=== PATIENT | male | born 1930 | race Two or more races ===

== ENCOUNTER → 2016-09-24 | Outpatient (CLI) | payer MEDICARE, OTHER ==
[~2016-09-24] MED LIST: ALBU8.5H IH; BUME1TAB30 PO; CARV12 PO; CLOP75 PO; DIGO250T73 PO; DOCU250C91 PO; DUTA1CPM PO; FURO40 PO; INSLAN SQ; INSU3INS5 SQ; LACT30L PO; LISI-660 PO; METO-296 PO; NIAC-8 PO; OMEP20 PO; POTA8TAB4 PO; PRED20 PO; SITA100 PO; SPIR25 PO; TAMS0.4C32 PO; TIOT185 IH; TRAM50TA4 PO
== END | disposition home or self-care (01) ==
LOC: RESP 09:39
PROVIDERS: ATTEND Internal Medicine Critical Care Medicine
DX: J44.9 Chronic obstructive pulmonary disease, unspecified (principal)
CPT/HCPCS: 94060

== ENCOUNTER → 2017-03-22 | Outpatient (CLI) | payer MEDICARE, OTHER ==
[~2017-03-22] MED LIST changes: -ALBU8.5H IH; +ALBU8.5H8 IH; +BUME1TAB17 PO; -BUME1TAB30 PO; -DUTA1CPM PO; -FURO40 PO; -INSU3INS5 SQ; -LISI-660 PO; -METO-296 PO; -NIAC-8 PO; +PRAV40TA4 PO; -PRED20 PO; +SACU1TAB PO; -SITA100 PO; -SPIR25 PO
== END | disposition home or self-care (01) ==
LOC: RADMN 10:02
PROVIDERS: ATTEND Internal Medicine Critical Care Medicine
DX: J98.4 Other disorders of lung (principal); J90 Pleural effusion, not elsewhere classified; I51.7 Cardiomegaly; I70.0 Atherosclerosis of aorta; I25.10 Atherosclerotic heart disease of native coronary artery without angina pectoris; M46.00 Spinal enthesopathy, site unspecified; K57.30 Diverticulosis of large intestine without perforation or abscess without bleeding; K57.10 Diverticulosis of small intestine without perforation or abscess without bleeding; Z95.1 Presence of aortocoronary bypass graft; Z95.0 Presence of cardiac pacemaker
CPT/HCPCS: 71250

== ENCOUNTER → 2017-04-09 | Outpatient (CLI) | payer MEDICARE, OTHER | END | disposition home or self-care (01) | LOC: RADPV 10:31 | PROVIDERS: ATTEND Family Medicine | DX: M25.511 Pain in right shoulder (principal) ==

== ENCOUNTER 2017-07-10 15:12 | Inpatient (IN) | payer MEDICARE, OTHER ==
[~2017-07-10] VITALS: Ht 165.1 cm; Wt 77.9 kg
[2017-07-10] MEDS ORDERED: SITA100 PO (15:33)
[2017-07-10] MEDS ORDERED: FINA5TAB41 PO (15:33)
[2017-07-10] MEDS ORDERED: FURO40I PO (15:33)
[2017-07-10] MEDS ORDERED: SPIR25 PO (15:33)
[2017-07-10] MEDS ORDERED: GABA-529 PO (15:33)
[2017-07-10 17:28] LABS: BASOPHILS % (AUTO) 0.4 % (0.0-2.0); EOSINOPHILS % (AUTO) 2.7 % (1.0-6.0); HEMATOCRIT 34.8 % (41-53); LYMPHOCYTES # (AUTO) 2.6 K/uL (1.0-4.8); LYMPHOCYTES % (AUTO) 51.9 % (22.0-44.0); MEAN CORPUSCULAR HEMOGLOBIN 29.1 pg (26.0-34.0); MEAN CORPUSCULAR HGB CONC 31.7 G/dL (31.0-37.0); MEAN CORPUSCULAR VOLUME 92 fL (80-100); MONOCYTES # (AUTO) 0.5 K/uL (0.1-1.0); MONOCYTES % (AUTO) 9.4 % (2.0-9.0); NEUTROPHILS # (AUTO) 1.8 K/uL (1.8-7.7); NEUTROPHILS % (AUTO) 35.6 % (40.0-70.0); PLATELET COUNT (AUTO) 114 K/uL (150-450); RED BLOOD CELL COUNT(AUTO) 3.79 MIL/uL (4.50-5.90); RED CELL DISTRIBUTION WIDTH 16.8 % (11.5-14.5)
[2017-07-10 17:31] LABS: ANION GAP 2 mmol/L (8-16); CALCIUM, TOTAL 8.9 mg/dL (8.8-10.5); CARBON DIOXIDE 38 mmol/L (22-29); CHLORIDE 103 mmol/L (98-107); CREATININE 1.73 mg/dL (0.60-1.30); GLOMERULAR FILTR. RATE CALC 38 mL/min (>60); GLUCOSE,RANDOM 127 mg/dL (70-110); POTASSIUM 4.7 mmol/L (3.5-5.1); SODIUM SERUM 143 mmol/L (136-145); UREA NITROGEN, BLOOD 73 mg/dL (7-18)
[2017-07-10 17:36] LABS: PROTHROMBIN TIME 10.6 SEC (9.4-11.6)
[2017-07-10 17:38] LABS: ALANINE AMINOTRANSFERASE 13 U/L (12-78); ALBUMIN 3.6 g/dL (3.4-5.0); ALKALINE PHOSPHATASE 56 U/L (46-116); ASPARTATE AMINOTRANSFERASE 13 U/L (15-37); BILIRUBIN,TOTAL 0.6 mg/dL (0.1-1.0); CREATINE KINASE, TOTAL 35 U/L (39-308); TOTAL PROTEIN, SERUM 6.7 g/dL (6.4-8.2)
[2017-07-10 17:56] LABS: B-TYPE NATRIURETIC PEPTIDE 1520 pg/mL (0-100)
[2017-07-10 18:43] LABS: DIGOXIN < 0.20 ng/mL (0.90-2.00)
[2017-07-10] MEDS ORDERED: ACETAMINOPHEN 325 MG TABLET PO PRN (19:00)
[2017-07-10] MEDS ORDERED: 0.9% SODIUM CHLORIDE 10 ML SYRINGE IVP PRN (19:00)
[2017-07-10] MEDS ORDERED: SODIUM CHLORIDE 0.9% 1,000 ML IV ONE (19:00)
[2017-07-10] MEDS ORDERED: ONDANSETRON HCL 4 MG/2 ML VIAL IVP PRN (19:00)
[2017-07-10 20:19] LABS: APPEARANCE,URINE CLEAR (CLEAR); BILIRUBIN,URINE NEGATIVE (NEGATIVE); GLUCOSE, URINE (UA) NEGATIVE (NEGATIVE); KETONES,URINE NEGATIVE (NEGATIVE); LEUKOCYTE ESTERASE ,URINE NEGATIVE (NEGATIVE); NITRATE,URINE NEGATIVE (NEGATIVE); OCCULT BLOOD,URINE NEGATIVE (NEGATIVE); PROTEIN,URINE NEGATIVE (NEGATIVE); UROBILINOGEN,URINE 0.2 mg/dL (<=1.0)
[2017-07-10 22:23] LABS: GLUCOSE,POINT OF CARE 189 MG/DL (70-110)
[2017-07-11 05:13] LABS: GLUCOSE,POINT OF CARE 102 MG/DL (70-110)
[2017-07-11 07:54] LABS: BASOPHILS % (AUTO) 0.8 % (0.0-2.0); EOSINOPHILS % (AUTO) 2.9 % (1.0-6.0); HEMATOCRIT 36.9 % (41-53); HEMOGLOBIN 11.6 g/dL (13.5-17.5); LYMPHOCYTES # (AUTO) 2.1 K/uL (1.0-4.8); LYMPHOCYTES % (AUTO) 42.7 % (22.0-44.0); MEAN CORPUSCULAR HGB CONC 31.3 G/dL (31.0-37.0); MEAN CORPUSCULAR VOLUME 93 fL (80-100); MONOCYTES # (AUTO) 0.4 K/uL (0.1-1.0); MONOCYTES % (AUTO) 8.1 % (2.0-9.0); NEUTROPHILS # (AUTO) 2.2 K/uL (1.8-7.7); NEUTROPHILS % (AUTO) 45.5 % (40.0-70.0); PLATELET COUNT (AUTO) 126 K/uL (150-450); RED BLOOD CELL COUNT(AUTO) 3.99 MIL/uL (4.50-5.90); RED CELL DISTRIBUTION WIDTH 17.4 % (11.5-14.5)
[2017-07-11 08:15] LABS: ALBUMIN 3.5 g/dL (3.4-5.0); BILIRUBIN,TOTAL 0.5 mg/dL (0.1-1.0); CALCIUM, TOTAL 8.6 mg/dL (8.8-10.5); CREATININE 1.66 mg/dL (0.60-1.30); POTASSIUM 4.8 mmol/L (3.5-5.1); TOTAL PROTEIN, SERUM 6.7 g/dL (6.4-8.2)
[2017-07-11 09:55] VITALS: BP 106/68
[2017-07-11 11:29] VITALS: BP 97/56
[2017-07-11] MEDS ORDERED: SACUBITRIL/VALSARTAN 24-26 MG TABLET PO SCH (13:00)
[2017-07-11] MEDS: SPIRONOLACTONE 25 MG TABLET PO SCH (13:00)
[2017-07-11] MEDS ORDERED: OMEPRAZOLE 20 MG CAPSULE PO SCH (13:00)
[2017-07-11] MEDS ORDERED: POTASSIUM CHLORIDE 8 MEQ ER TABLET PO SCH (13:00)
[2017-07-11] MEDS: FUROSEMIDE 20 MG/2 ML VIAL IVP SCH ×2 (14:30→20:09)
[2017-07-11] MEDS: PRAVASTATIN SODIUM 40 MG TABLET PO SCH (14:30)
[2017-07-11] MEDS: DOCUSATE SODIUM 250 MG CAPSULE PO SCH ×2 (14:30→20:09)
[2017-07-11] MEDS: CLOPIDOGREL BISULFATE 75 MG TABLET PO SCH (14:31)
[2017-07-11] MEDS: FINASTERIDE 5 MG TABLET PO SCH (14:31)
[2017-07-11] MEDS: TAMSULOSIN HCL 0.4 MG CAPSULE PO SCH (14:32)
[2017-07-11] MEDS: SitaGLIPtin PHOSPHATE 100 MG TABLET PO SCH (14:32)
[2017-07-11] MEDS: CARVEDILOL 3.125 MG TABLET PO SCH (14:32)
[2017-07-11 15:57] VITALS: BP 112/52
[2017-07-11] MEDS ORDERED: INFLUENZA VIRUS VACCINE QVS 2017-18 (3YR+)/PF 60 MCG/0.5 ML SYRINGE IM ONE (17:30)
[2017-07-11 20:08] LABS: GLUCOMETER DEV NAME(LOC) 5S 2N; GLUCOSE,POINT OF CARE 155 MG/DL (70-110)
[2017-07-11 20:09] VITALS: BP 99/63
[2017-07-11] MEDS: PANTOPRAZOLE SODIUM 40 MG DR TABLET PO SCH (20:09)
[2017-07-11 23:27] VITALS: BP 99/57
[2017-07-12 02:13] LABS: GLUCOMETER DEV NAME(LOC) 5S 2N; GLUCOSE,POINT OF CARE 140 MG/DL (70-110)
[2017-07-12 04:22] VITALS: BP 99/70
[2017-07-12 07:41] VITALS: BP 102/56
[2017-07-12] MEDS: PANTOPRAZOLE SODIUM 40 MG DR TABLET PO SCH ×2 (08:52→20:24)
[2017-07-12] MEDS: CARVEDILOL 3.125 MG TABLET PO SCH (08:53)
[2017-07-12] MEDS: CLOPIDOGREL BISULFATE 75 MG TABLET PO SCH (08:53)
[2017-07-12] MEDS: DOCUSATE SODIUM 250 MG CAPSULE PO SCH ×2 (08:53→20:24)
[2017-07-12] MEDS: FINASTERIDE 5 MG TABLET PO SCH (08:53)
[2017-07-12] MEDS: SitaGLIPtin PHOSPHATE 100 MG TABLET PO SCH (08:53)
[2017-07-12] MEDS: SPIRONOLACTONE 25 MG TABLET PO SCH (08:53)
[2017-07-12] MEDS: TAMSULOSIN HCL 0.4 MG CAPSULE PO SCH (08:53)
[2017-07-12] MEDS: PRAVASTATIN SODIUM 40 MG TABLET PO SCH (08:53)
[2017-07-12] MEDS: FUROSEMIDE 20 MG/2 ML VIAL IVP SCH ×2 (08:53→20:23)
[2017-07-12 11:38] LABS: GLUCOMETER DEV NAME(LOC) 5N 2S; GLUCOSE,POINT OF CARE 131 MG/DL (70-110)
[2017-07-12 11:52] VITALS: BP 99/48
[2017-07-12 15:28] VITALS: BP 98/53
[2017-07-12 20:42] VITALS: BP 101/56
[2017-07-13] VITALS (12 sets, daily range): BP systolic 95–132; BP diastolic 43–60
[2017-07-13 06:31] LABS: BASOPHILS % (AUTO) 0.6 % (0.0-2.0); EOSINOPHILS % (AUTO) 2.5 % (1.0-6.0); LYMPHOCYTES # (AUTO) 1.9 K/uL (1.0-4.8); LYMPHOCYTES % (AUTO) 37.3 % (22.0-44.0); MEAN CORPUSCULAR HGB CONC 32.4 G/dL (31.0-37.0); MEAN CORPUSCULAR VOLUME 93 fL (80-100); MONOCYTES # (AUTO) 0.5 K/uL (0.1-1.0); MONOCYTES % (AUTO) 9.8 % (2.0-9.0); NEUTROPHILS # (AUTO) 2.5 K/uL (1.8-7.7); NEUTROPHILS % (AUTO) 49.8 % (40.0-70.0); PLATELET COUNT (AUTO) 97 K/uL (150-450); RED BLOOD CELL COUNT(AUTO) 3.67 MIL/uL (4.50-5.90); RED CELL DISTRIBUTION WIDTH 16.8 % (11.5-14.5)
[2017-07-13 07:04] LABS: CALCIUM, TOTAL 8.2 mg/dL (8.8-10.5); CHOL/HDL RATIO 2.2 (4.2-7.3); CREATININE 1.68 mg/dL (0.60-1.30); MAGNESIUM 2.9 mg/dL (1.80-2.40); POTASSIUM 5.4 mmol/L (3.5-5.1)
[2017-07-13 07:10] LABS: HEMOGLOBIN A1C 6.9 % (4.5-6.2)
[2017-07-13] MEDS: PRAVASTATIN SODIUM 40 MG TABLET PO SCH (08:37)
[2017-07-13] MEDS: TAMSULOSIN HCL 0.4 MG CAPSULE PO SCH (08:37)
[2017-07-13] MEDS: SitaGLIPtin PHOSPHATE 100 MG TABLET PO SCH (08:37)
[2017-07-13] MEDS: CLOPIDOGREL BISULFATE 75 MG TABLET PO SCH (08:37)
[2017-07-13] MEDS: DOCUSATE SODIUM 250 MG CAPSULE PO SCH ×2 (08:37→20:30)
[2017-07-13] MEDS: FINASTERIDE 5 MG TABLET PO SCH (08:38)
[2017-07-13] MEDS: PANTOPRAZOLE SODIUM 40 MG DR TABLET PO SCH ×2 (08:38→20:31)
[2017-07-13] MEDS: FUROSEMIDE 20 MG/2 ML VIAL IVP SCH ×2 (09:00→20:31)
[2017-07-13] MEDS: SPIRONOLACTONE 25 MG TABLET PO SCH (09:00)
[2017-07-13] MEDS: CARVEDILOL 3.125 MG TABLET PO SCH (10:02)
[2017-07-14] VITALS (7 sets, daily range): BP systolic 97–108; BP diastolic 53–62
[2017-07-14 05:07] LABS: GLUCOMETER DEV NAME(LOC) 5N 2S; GLUCOSE,POINT OF CARE 156 MG/DL (70-110)
[2017-07-14 07:17] LABS: CALCIUM, TOTAL 8.3 mg/dL (8.8-10.5); CREATININE 1.94 mg/dL (0.60-1.30); POTASSIUM 5.2 mmol/L (3.5-5.1)
[2017-07-14 07:19] LABS: BASOPHILS % (AUTO) 0.4 % (0.0-2.0); EOSINOPHILS % (AUTO) 2.2 % (1.0-6.0); HEMATOCRIT 35.8 % (41-53); HEMOGLOBIN 11.4 g/dL (13.5-17.5); LYMPHOCYTES # (AUTO) 1.9 K/uL (1.0-4.8); LYMPHOCYTES % (AUTO) 37.9 % (22.0-44.0); MEAN CORPUSCULAR HEMOGLOBIN 29.6 pg (26.0-34.0); MEAN CORPUSCULAR HGB CONC 31.9 G/dL (31.0-37.0); MEAN CORPUSCULAR VOLUME 93 fL (80-100); MONOCYTES # (AUTO) 0.5 K/uL (0.1-1.0); MONOCYTES % (AUTO) 9.1 % (2.0-9.0); NEUTROPHILS # (AUTO) 2.5 K/uL (1.8-7.7); NEUTROPHILS % (AUTO) 50.4 % (40.0-70.0); PLATELET COUNT (AUTO) 87 K/uL (150-450); RED BLOOD CELL COUNT(AUTO) 3.86 MIL/uL (4.50-5.90); RED CELL DISTRIBUTION WIDTH 16.7 % (11.5-14.5)
[2017-07-14] MEDS: DOCUSATE SODIUM 250 MG CAPSULE PO SCH ×2 (08:45→20:50)
[2017-07-14] MEDS: FINASTERIDE 5 MG TABLET PO SCH (08:46)
[2017-07-14] MEDS: SitaGLIPtin PHOSPHATE 100 MG TABLET PO SCH (08:46)
[2017-07-14] MEDS: PANTOPRAZOLE SODIUM 40 MG DR TABLET PO SCH ×2 (08:46→20:49)
[2017-07-14] MEDS: PRAVASTATIN SODIUM 40 MG TABLET PO SCH (08:46)
[2017-07-14] MEDS: TAMSULOSIN HCL 0.4 MG CAPSULE PO SCH (08:46)
[2017-07-14] MEDS: CLOPIDOGREL BISULFATE 75 MG TABLET PO SCH (08:46)
[2017-07-14] MEDS: FUROSEMIDE 20 MG/2 ML VIAL IVP SCH ×2 (08:48→20:52)
[2017-07-14] MEDS: CARVEDILOL 3.125 MG TABLET PO SCH (08:50)
[2017-07-14] MEDS: SPIRONOLACTONE 25 MG TABLET PO SCH (09:00)
[2017-07-15 04:07] VITALS: BP 110/58
[2017-07-15 07:15] VITALS: BP 110/60
[2017-07-15] MEDS: CARVEDILOL 3.125 MG TABLET PO SCH (09:00)
[2017-07-15] MEDS: FUROSEMIDE 20 MG/2 ML VIAL IVP SCH ×2 (09:00→20:39)
[2017-07-15] MEDS: CLOPIDOGREL BISULFATE 75 MG TABLET PO SCH (09:00)
[2017-07-15] MEDS: FINASTERIDE 5 MG TABLET PO SCH (09:32)
[2017-07-15] MEDS: SitaGLIPtin PHOSPHATE 100 MG TABLET PO SCH (09:32)
[2017-07-15] MEDS: TAMSULOSIN HCL 0.4 MG CAPSULE PO SCH (09:32)
[2017-07-15] MEDS: SPIRONOLACTONE 25 MG TABLET PO SCH (09:33)
[2017-07-15] MEDS: DOCUSATE SODIUM 250 MG CAPSULE PO SCH ×2 (09:33→20:37)
[2017-07-15] MEDS: PRAVASTATIN SODIUM 40 MG TABLET PO SCH (09:33)
[2017-07-15] MEDS: PANTOPRAZOLE SODIUM 40 MG DR TABLET PO SCH ×2 (09:33→20:37)
[2017-07-15 11:17] VITALS: BP 101/59
[2017-07-15 15:10] VITALS: BP 111/56
[2017-07-15 19:31] VITALS: BP 111/63
[2017-07-16 00:08] VITALS: BP 103/56
[2017-07-16 01:02] LABS: GLUCOMETER DEV NAME(LOC) 5N 2S; GLUCOSE,POINT OF CARE 163 MG/DL (70-110)
[2017-07-16 04:41] VITALS: BP 113/61
[2017-07-16 07:17] LABS: BASOPHILS % (AUTO) 0.6 % (0.0-2.0); EOSINOPHILS % (AUTO) 2.7 % (1.0-6.0); HEMATOCRIT 35.3 % (41-53); HEMOGLOBIN 11.6 g/dL (13.5-17.5); LYMPHOCYTES # (AUTO) 1.6 K/uL (1.0-4.8); LYMPHOCYTES % (AUTO) 36.9 % (22.0-44.0); MEAN CORPUSCULAR HEMOGLOBIN 30.1 pg (26.0-34.0); MEAN CORPUSCULAR HGB CONC 32.9 G/dL (31.0-37.0); MEAN CORPUSCULAR VOLUME 92 fL (80-100); MONOCYTES # (AUTO) 0.4 K/uL (0.1-1.0); MONOCYTES % (AUTO) 9.5 % (2.0-9.0); NEUTROPHILS # (AUTO) 2.2 K/uL (1.8-7.7); NEUTROPHILS % (AUTO) 50.3 % (40.0-70.0); PLATELET COUNT (AUTO) 88 K/uL (150-450); RED BLOOD CELL COUNT(AUTO) 3.86 MIL/uL (4.50-5.90)
[2017-07-16 07:31] LABS: CALCIUM, TOTAL 8.3 mg/dL (8.8-10.5); CREATININE 1.67 mg/dL (0.60-1.30); MAGNESIUM 3.1 mg/dL (1.80-2.40)
[2017-07-16 07:50] VITALS: BP 105/55
[2017-07-16] MEDS: CLOPIDOGREL BISULFATE 75 MG TABLET PO SCH (08:35)
[2017-07-16] MEDS: DOCUSATE SODIUM 250 MG CAPSULE PO SCH (08:35)
[2017-07-16] MEDS: TAMSULOSIN HCL 0.4 MG CAPSULE PO SCH (08:35)
[2017-07-16] MEDS: FUROSEMIDE 20 MG/2 ML VIAL IVP SCH (08:35)
[2017-07-16] MEDS: PANTOPRAZOLE SODIUM 40 MG DR TABLET PO SCH (08:35)
[2017-07-16] MEDS: SitaGLIPtin PHOSPHATE 100 MG TABLET PO SCH (08:36)
[2017-07-16] MEDS: PRAVASTATIN SODIUM 40 MG TABLET PO SCH (08:36)
[2017-07-16] MEDS: SPIRONOLACTONE 25 MG TABLET PO SCH (08:36)
[2017-07-16] MEDS: FINASTERIDE 5 MG TABLET PO SCH (08:36)
[2017-07-16] MEDS: CARVEDILOL 3.125 MG TABLET PO SCH (09:00)
[2017-07-16 09:53] LABS: PLATELET MORPHOLOGY COMMENT DECREASED
[2017-07-16 11:17] VITALS: BP 103/51
[2017-07-16 15:45] VITALS: BP 106/56
== END 2017-07-16 18:45 | disposition home or self-care (01) | DRG 314 ==
LOC: EMS 15:15 → 5N 07-11 05:00
PROVIDERS: ADMIT Family Medicine; ATTEND Family Medicine
PROC: 3E0234Z Introduction of Serum, Toxoid and Vaccine into Muscle, Percutaneous Approach (ICD-10-PCS; principal; 2017-07-14)
DX: I95.9 Hypotension, unspecified (principal); N17.0 Acute kidney failure with tubular necrosis; I13.0 Hypertensive heart and chronic kidney disease with heart failure and stage 1 through stage 4 chronic kidney disease, or unspecified chronic kidney disease; I42.0 Dilated cardiomyopathy; E11.22 Type 2 diabetes mellitus with diabetic chronic kidney disease; E11.51 Type 2 diabetes mellitus with diabetic peripheral angiopathy without gangrene; E87.5 Hyperkalemia; I50.9 Heart failure, unspecified; I70.0 Atherosclerosis of aorta; I25.5 Ischemic cardiomyopathy; J44.9 Chronic obstructive pulmonary disease, unspecified; I25.10 Atherosclerotic heart disease of native coronary artery without angina pectoris; N18.3 Chronic kidney disease, stage 3 (moderate); E78.5 Hyperlipidemia, unspecified; D64.9 Anemia, unspecified; E78.00 Pure hypercholesterolemia, unspecified; Z86.73 Personal history of transient ischemic attack (TIA), and cerebral infarction without residual deficits; Z95.1 Presence of aortocoronary bypass graft; Z95.0 Presence of cardiac pacemaker; Z79.899 Other long term (current) drug therapy; Z23 Encounter for immunization
CPT/HCPCS: 82962; 83036; 83735; 90471; 93005; 93306; 96360; 96361; 97116; 97162; 97530; 99285; J1940; J7030